=== PATIENT | male | born 1960 | race Caucasian/White ===

== ENCOUNTER 2023-12-28 14:01 | Emergency (ER) | payer MEDICARE, OTHER, SELFPAY ==
[2023-12-28 14:07] VITALS: BP 154/82
[2023-12-28 14:29] LABS: % Basophils 0.2 % (0-2); % Immature Granulocytes 0.2 % (0-0.5); % Lymphocytes 18.7 % (20.5-51.1); % Monocytes 8.8 % (1.7-9.3); % Neutrophils 71.1 % (42.2-75.2); Absolute Eosinophils 0.1 10^3/uL (0-0.7); Absolute Lymphocytes 1.5 10^3/uL (1.2-3.4); Absolute Monocytes 0.7 10^3/uL (0.1-0.6); Absolute Neutrophils 5.8 10^3/uL (1.4-6.5); Hematocrit 43.1 % (39.0-52.0); Hemoglobin 14.2 g/dL (13.0-18.0); Mean Corp Hgb Conc. 32.9 g/dL (33.0-37.0); Mean Corpuscular Hgb 29.7 pg (27.0-31.0); Mean Corpuscular Volume 90.2 fL (80.0-94.0); Mean Platelet Volume 9.1 fL (7.4-10.4); Nucleated Red Blood Cells % 0 % (-); Platelet Count 225 10^3/uL (130-400); Red Blood Cell Count 4.78 10^6/uL (4.70-6.10); Red Cell Dist. Width 12.5 % (11.5-14.5); White Blood Cell Count 8.1 10^3/uL (4.8-10.8)
--- NOTE | 2023-12-28 14:31 | ED.GENMED ---
History of Present Illness
General
Chief Complaint: Dizziness
Time Seen by Provider: 12/28/23 14:22
Travel History
Have you had any contact with someone who has COVID-19?: No
Do you have any symptoms of coronavirus? Fever > 100 degrees, chills, cough, shortness of breath, sore throat, loss of taste or smell, muscle aches, or headache?: No
History of Present Illness
History of Present Illness:
HPI: About 60 minutes ago, the patient was at a market in [place] and had a general unwell feeling including sensation of nearly passing out and a pounding heartbeat. The symptoms persisted and overall did not feel well when he got home 2
minutes later. He never had any chest pain or shortness of breath. He has no headache. He does not necessarily feel all that dizzy right now but still feels somewhat lightheaded.
EXAM:
GENERAL: Well appearing in no distress
HEENT: Moist oral mucosa
CARDIOVASCULAR: No murmurs, normal heart rate and rhythm, No chest wall tenderness, device noted
PULMONARY: No respiratory distress, breath sounds are clear and equal
ABDOMEN: Soft with no peritoneal signs, no tenderness
NEUROLOGIC: Excellent strength all extremities, no coordination deficits, normal finger-nose testing
PSYCHIATRIC: Appropriate mental status, normal insight and judgement
EXTREMITIES: Nontender, no edema, moves all extremities equally
SKIN: No rash, no lesions
ED COURSE:
2:30 PM: I initially evaluated patient
NUMBER AND COMPLEXITY OF PROBLEMS ADDRESSED AT THE ENCOUNTER
� Chronic conditions affecting care: Diabetes, diabetic neuropathy and has had problems with balance in the past, CAD, CHF on Lasix
� Acute Exacerbation and/or Progression of Chronic Illness: This is an acute problem but he has been dizzy in the past
� Differential Diagnosis includes: Hypoglycemia, dysrhythmia, electrolyte abnormality, ACS unlikely given absence of chest pain however the patient is a diabetic
AMOUNT AND/OR COMPLEXITY OF DATA TO BE REVIEWED AND ANALYZED
� I performed an independent evaluation of and my interpretation is:
EKG: AV paced at 72, no change in comparison to 05/07/2023
CT:
X-rays:
Laboratory Studies: Hemoglobin today is 14.2, troponin 0.044 and last troponin on May 07, 2023 was 0.014. He did have an elevated troponin similar to today's that cardiology felt was noncardiac.
Other:
� Review of other/old records: The patient was seen here 05/07/2023 with dizziness and at that time hemoglobin was 10.4
� Clinical information was obtained by an independent historian: Spoke to son
� Prescriptions/Medications Considered but not given:
� Further testing considered but not performed:
RISK OF COMPLICATIONS AND/OR MORBIDITY OR MORTALITY OF PATIENT MANAGEMENT
� Social determinants of health affecting care: Lives at home
� Discussion with other providers: Notified cardiology, Dr. Schuler of the patient's presentation at 3:40 PM
� Escalation of care including admission/observation vs risk of discharge considered: Initial EKG shows V paced rhythm. The patient was given some IV fluids as the hemoglobin was much higher than prior suggesting some degree of
dehydration. He feels a little bit better. Interrogation showed no dysrhythmia. Repeat EKG is unchanged from initial. Dr. Schuler said he will arrange close outpatient follow-up. The patient appears very comfortable at time of discharge.
Past History
Past History
ED Past Medical History: Asthma, Cancer (Renal cell carcinoma), CHF, GERD, HTN, Hypercholesterolemia, IDDM, Psychiatric (Anxiety, Depression, ADHD) and Other (Sleep apnea)
ED Past Surgical History: Cardiac (Pacemaker, ), Urological (Right nephrectomy) and Other (Hernia repair)
Social History
Tobacco: Former smoker
Alcohol: Occasional
Drug: None
Personal:
Living: with family
Phy Exam
Physical Exam
Physical Exam:
See HPI
Course
Orders/Labs/Results
Orders:
Orders
12/28/23 14:01
EKG [Electrocardiogram (*1)] Urgent
Reason for Study: Shortness of Breath
12/28/23 14:02
EKG- Treatment ONCE
12/28/23 14:16
Complete Blood Count/With Diff Urgent
Comprehensive Metabolic Panel Urgent
Troponin I Urgent
12/28/23 14:31
0.9% Sodium Chloride 1000 ml [Nss] 1,000 ml IV BOLUS
12/28/23 15:42
Troponin I Urgent
Abnormal Lab Results
12/28/23 12/28/23
14:16 15:42
MCHC 32.9 L g/dL
(33.0-37.0)
Absolute Monos (auto) 0.7 H 10^3/uL
(0.1-0.6)
Lymphocytes % 18.7 L %
(20.5-51.1)
BUN 29 H mg/dl
(9-20)
Glucose 118 H mg/dl
(70-99)
Troponin I 0.044 H* ng/ml 0.043 H* ng/ml
12/28/23 14:16
12/28/23 14:16
Vital Signs
Initial and Last Documented VS:
Initial Vital Signs
Temp Pulse Resp BP Pulse Ox
99.5 F 75 16 154/82 100
12/28/23 14:07 12/28/23 14:07 12/28/23 14:07 12/28/23 14:07 12/28/23 14:07
Last Documented Vital Signs
Temp Pulse Resp BP Pulse Ox
99.5 F 71 14 151/83 97
12/28/23 14:07 12/28/23 14:45 12/28/23 14:45 12/28/23 14:34 12/28/23 14:45
*Critical Care Note
Total Time (30-74mins, 75-104mins- exclusive of procedures): Not Applicable
ED Attending Note
-
Portions of this chart may have been created with voice recognition software.� Occasional wrong word or��sound alike� substitutions may have occurred due to the inherent limitations of voice recognition software.
Discharge Plan
Departure
Patient Disposition: Home (Routine Discharge)
Date of Disposition: 12/28/23
Time of Disposition: 16:26
Patient with high blood pressure during this ER visit?: Yes
Discharge Problem:
Palpitations
Instructions: Chest Pain DCA Follow Up
Prescriptions:
No Action
atorvastatin 40 MG tablet
40 mg PO HS
omeprazole 40 MG capsule,delayed release(DR/EC)
40 mg PO HS
gabapentin 300 MG capsule
300 mg PO BID
montelukast 10 MG tablet
10 mg PO HS
pioglitazone 30 MG tablet
30 mg PO HS
meclizine 25 mg Tablet
25 mg PO DAILY
losartan 50 mg tablet
50 mg PO HS
metformin 1,000 mg tablet
1,000 mg PO BID
mirtazapine 45 mg tablet
45 mg PO HS
fluoxetine 20 mg capsule
60 mg PO DAILY
budesonide-formoterol [Symbicort] 160-4.5 mcg/actuation HFA aerosol inhaler
2 puff INHALATION R DAILY
cyanocobalamin (vitamin B-12) 1,000 mcg Tablet
1,000 mcg PO DAILY 30 Days Qty: 30 0RF
furosemide 20 mg Tablet
20 mg PO DAILY 30 Days Qty: 30 0RF
carvedilol 12.5 mg Tablet
12.5 mg PO BID
insulin glargine [Lantus Solostar U-100 Insulin] 100 unit/mL (3 mL) Insulin Pen
30 unit SC HS
cholecalciferol (vitamin D3) 50 mcg (2,000 unit) Tablet
50 mcg PO DAILY
omega 7-ats-lws-fish oil [Fish Oil] 1,000 mg (120 mg-180 mg) Capsule
1 cap PO DAILY
Referrals:
TRU BROOKE MD [Family Provider] -
Activity Restrictions/Additional Instructions:
Cardiac blood work was slightly abnormal so I spoke to cardiology. Repeat cardiac blood work was unchanged from the first. This is a good sign. Your cardiac blood work has been elevated in the past as well. I recommend that you follow-up with
cardiology and they are aware that you are here in the ER today. We also interrogated the pacemaker device which shows no sign of any dysrhythmia that you may have had earlier today that would explain the symptoms.
Interventions
Interventions:
*Risk Screen - Suicide Last Done: 12/28/23 14:24
*General Assessment Last Done: 12/28/23 14:07
*Neglect/Abuse Screening Last Done: 12/28/23 14:24
*ED COVID-19 Vaccine History Last Done: 12/28/23 14:07
ED- Cardiac Assessment Last Done: 12/28/23 14:43
ED- Neurological Assessment Last Done: 12/28/23 14:43
ED Swallowing Screen Last Done: 12/28/23 14:43
[2023-12-28 14:34] VITALS: BP 151/83
[2023-12-28 14:36] LABS: ALT (SGPT) 26 U/L (0-50); AST (SGOT) 32 U/L (17-59); Alkaline Phosphatase 112 U/L (38-126); Blood Urea Nitrogen 29 mg/dl (9-20); Calcium 9.9 mg/dl (8.4-10.2); Carbon Dioxide 30 mmol/L (22-30); Chloride 104 mmol/L (98-107); Glucose 118 mg/dl (70-99); Sodium 138 mmol/L (135-145); Total Bilirubin 0.6 mg/dl (0.2-1.3); Total Protein 7.5 g/dl (6.3-8.2); eGFR > 60.00
[2023-12-28] MEDS: NSS 1000 IV (14:44)
[2023-12-28 14:47] LABS: Potassium 5.1 mmol/L (3.5-5.1)
[2023-12-28 14:53] LABS: Troponin I 0.044 ng/ml
[2023-12-28 15:00] VITALS: BP 151/79
[2023-12-28 16:00] VITALS: BP 161/85
[2023-12-28 16:18] LABS: Troponin I 0.043 ng/ml
== END 2023-12-28 16:45 | disposition home or self-care (01) ==
LOC: EMR 14:01
PROVIDERS: Student in an Organized Health Care Education/Training Program; EMERGENCY PHYSICIAN Emergency Medicine; FAMILY PHYSICIAN Internal Medicine
DX: R55 Syncope and collapse (principal); R00.2 Palpitations; I11.0 Hypertensive heart disease with heart failure; I50.9 Heart failure, unspecified; E11.40 Type 2 diabetes mellitus with diabetic neuropathy, unspecified; I25.10 Atherosclerotic heart disease of native coronary artery without angina pectoris; F32.A Depression, unspecified; F41.9 Anxiety disorder, unspecified; G47.30 Sleep apnea, unspecified; J45.909 Unspecified asthma, uncomplicated; K21.9 Gastro-esophageal reflux disease without esophagitis; Z79.4 Long term (current) use of insulin; Z95.0 Presence of cardiac pacemaker; Z87.891 Personal history of nicotine dependence; Z85.528 Personal history of other malignant neoplasm of kidney; Z90.5 Acquired absence of kidney
CPT/HCPCS: 99285; 96360; 93288; 80053; 84484; 85025; 93005

== ENCOUNTER 2024-04-14 13:54 | Emergency (ER) | payer MEDICARE, OTHER, SELFPAY ==
[2024-04-14 14:06] VITALS: BP 116/65
--- NOTE | 2024-04-14 15:00 | ED.GENMED ---
History of Present Illness
<Mine Eldridge PA-C - Last Filed: 04/14/24 18:56>
General
Chief Complaint: Weakness
Source: patient
Exam Limitations: none
Time Seen by Provider: 04/14/24 14:55
Nursing documentation reviewed up to this point in time: agreed with
Travel History
Have you had any contact with someone who has COVID-19?: No
Do you have any symptoms of coronavirus? Fever > 100 degrees, chills, cough, shortness of breath, sore throat, loss of taste or smell, muscle aches, or headache?: No
History of Present Illness
History of Present Illness:
63-year-old male with a past medical history of CHF, diabetes, history of heart block on pacemaker, renal cancer status post left nephrectomy coming into the emergency department today with lightheadedness and weakness that started this morning.
Patient states that when he woke up this morning, he started to feel a bit lightheaded when he stood up. Patient states that he felt like he was about to pass out. Patient states that his symptoms are better when he sitting or laying back but he
does still feel lightheaded. Patient does have a history of vertigo as well for which he takes meclizine. Patient did take that this morning with some relief. Patient denies chest pain, syncopal episodes, recent illnesses or recent
hospitalizations. Patient denies any swelling in his legs, shortness of breath. Patient denies any nausea or vomiting, headache.
Past History
<Mine Eldridge PA-C - Last Filed: 04/14/24 18:56>
Past History
ED Past Medical History: Asthma, Cancer (Renal cell carcinoma), CHF, GERD, HTN, Hypercholesterolemia, IDDM, Psychiatric (Anxiety, Depression, ADHD) and Other (Sleep apnea)
ED Past Surgical History: Cardiac (Pacemaker, ), Urological (Right nephrectomy) and Other (Hernia repair)
Social History
Tobacco: Former smoker
Alcohol: Occasional
Drug: None
Personal:
Living: with family
Review of Systems
<Mine Eldridge PA-C - Last Filed: 04/14/24 18:56>
Review of Systems
All Other Systems: ROS reviewed and negative except as documented in HPI and ROS
Phy Exam
<Mine Eldridge PA-C - Last Filed: 04/14/24 18:56>
Physical Exam
Physical Exam:
General: Patient is well appearing and in no acute distress; non-toxic
Skin: Warm and dry, no rashes or lesions
Head: Normocephalic, atraumatic
Eyes: Sclera non-icteric. EOMs intact. No nystagmus.
Cardiac: Regular rate and rhythm, no murmur
Peripheral Vascular: No lower extremity swelling or edema
Pulm: Normal respiratory effort, no wheezes, rales, rhonchi
Neuro: CN II-XII intact, no focal neurologic deficits. No dysmetria
Psychiatric: Appropriate mood and affect.
Course
<Mine Eldridge PA-C - Last Filed: 04/14/24 18:56>
Orders/Labs/Results
Orders:
Orders
04/14/24 15:09
Electrocardiogram (*1) Urgent
Reason for Study: Fatigue / Weakness
EKG- Treatment ONCE
Orthostatic VS- Treatment ONCE
04/14/24 15:26
pacemaker [Interrogate Pacemaker- Treatment] ONCE
04/14/24 15:41
Complete Blood Count/With Diff Urgent
04/14/24 15:46
0.9% Sodium Chloride 500 ml [Nss] 500 ml IV BOLUS
Diazepam [Valium] 2 mg PO NOW STA
04/14/24 16:34
Comprehensive Metabolic Panel Urgent
Abnormal Lab Results
04/14/24 04/14/24
15:41 16:34
RBC 4.40 L 10^6/uL
(4.70-6.10)
Absolute Monos (auto) 0.7 H 10^3/uL
(0.1-0.6)
Carbon Dioxide 33 H mmol/L
(22-30)
BUN 25 H mg/dl
(9-20)
Glucose 63 L mg/dl
(70-99)
04/14/24 15:41
04/14/24 16:34
Vital Signs
Initial and Last Documented VS:
Initial Vital Signs
Temp Pulse Resp BP Pulse Ox
98.8 F 64 20 116/65 97
04/14/24 14:06 04/14/24 14:06 04/14/24 14:06 04/14/24 14:06 04/14/24 14:06
Last Documented Vital Signs
Temp Pulse Resp BP Pulse Ox
98.8 F 64 20 116/65 97
04/14/24 14:06 04/14/24 14:06 04/14/24 14:06 04/14/24 14:06 04/14/24 14:06
<Suraj Vick, DO - Last Filed: 04/14/24 15:54>
Orders/Labs/Results
Orders:
Orders
04/14/24 15:09
Electrocardiogram (*1) Urgent
Reason for Study: Fatigue / Weakness
EKG- Treatment ONCE
Orthostatic VS- Treatment ONCE
04/14/24 15:26
pacemaker [Interrogate Pacemaker- Treatment] ONCE
04/14/24 15:41
Complete Blood Count/With Diff Urgent
04/14/24 15:46
0.9% Sodium Chloride 500 ml [Nss] 500 ml IV BOLUS
Diazepam [Valium] 2 mg PO NOW STA
04/14/24 16:34
Comprehensive Metabolic Panel Urgent
Abnormal Lab Results
04/14/24 04/14/24
15:41 16:34
RBC 4.40 L 10^6/uL
(4.70-6.10)
Absolute Monos (auto) 0.7 H 10^3/uL
(0.1-0.6)
Carbon Dioxide 33 H mmol/L
(22-30)
BUN 25 H mg/dl
(9-20)
Glucose 63 L mg/dl
(70-99)
04/14/24 15:41
04/14/24 16:34
Vital Signs
Initial and Last Documented VS:
Initial Vital Signs
Temp Pulse Resp BP Pulse Ox
98.8 F 64 20 116/65 97
04/14/24 14:06 04/14/24 14:06 04/14/24 14:06 04/14/24 14:06 04/14/24 14:06
Last Documented Vital Signs
Temp Pulse Resp BP Pulse Ox
98.8 F 64 20 116/65 97
04/14/24 14:06 04/14/24 14:06 04/14/24 14:06 04/14/24 14:06 04/14/24 14:06
<Mine Eldridge PA-C - Last Filed: 04/14/24 18:56>
*Critical Care Note
Total Time (30-74mins, 75-104mins- exclusive of procedures): Not Applicable
<Mine Eldridge PA-C - Last Filed: 04/14/24 18:56>
Patient Management
Escalation/DeEscalation of care consider admission/obs:
63-year-old male with a past medical history of CHF, diabetes, history of heart block on pacemaker, renal cancer status post left nephrectomy coming into the emergency department today with lightheadedness and weakness that started this morning.
Patient does have a history of vertigo and he did take meclizine today which did not help his symptoms mildly. On physical exam, his neurologic exam is unremarkable. Patient was given a dose of Valium here as well as IV fluids which did improve
his symptoms. I personally observed patient ambulate, patient states that he did feel better and felt stay on his feet. Here in emergency department, his orthostatic vitals were positive, with his blood pressure decreasing by 20 mmHg with
standing. This likely contributing to his symptoms. Patient CBC and CMP are unremarkable, his EKG G shows no ischemic changes, his pacemaker interrogation was negative. Considering he is well-appearing, his symptoms have largely improved he is
stable for discharge. Patient states that he will follow-up with his process steward.
<Mine Eldridge PA-C - Last Filed: 04/14/24 18:56>
Update Note
Update Note:
5:10 pm--patient does not some improvement with the valium
ED Attending Note
<Mine Eldridge PA-C - Last Filed: 04/14/24 18:56>
-
Portions of this chart may have been created with voice recognition software.� Occasional wrong word or��sound alike� substitutions may have occurred due to the inherent limitations of voice recognition software.
<Suraj Vick DO - Last Filed: 04/14/24 15:54>
ED Attending Note
Patient seen and examined by attending physician: Yes
I performed the substantive portion of visit, reviewed & personally made and approve the management plan that is documented in note by myself or MORIAH.: Yes
ED Attending Note:
I have seen and evaluated the patient with a [id number] encounter. I have spoken to the advance practicer provider and involved in the medical history, the physical exam, medical decision making.
Evaluation and management service: agree unless noted differently below.
Results interpretation: agree unless noted differently below.
Focused HPI: 63-year-old male presenting with vague dizziness and vague lightheadedness. He noticed the symptoms earlier today. He is unsure if this is related to his vertigo or possible dehydration. He took his meclizine early this morning with
some relief
Physical exam: Lying in bed comfortably. Mildly dry mucous membranes. Mild fatigable horizontal nystagmus to the right. Heart regular rate and rhythm
Medical Decision Making: Will give IV fluids and Valium and obtain basic blood work and check pacemaker
Discharge Plan
Departure
Patient Disposition: Home (Routine Discharge)
Date of Disposition: 04/14/24
Time of Disposition: 18:17
Patient with high blood pressure during this ER visit?: No
Condition: Good
Discharge Problem:
Orthostatic hypotension, Lightheadedness
Instructions: Orthostatic hypotension, BLOOD PRESSURE
Prescriptions:
New
diazepam [Valium] 2 mg tablet
2 mg PO QID PRN (Reason: muscle spasm) Qty: 8 0RF
No Action
atorvastatin 40 MG tablet
40 mg PO HS
omeprazole 40 MG capsule,delayed release(DR/EC)
40 mg PO HS
gabapentin 300 MG capsule
300 mg PO BID
montelukast 10 MG tablet
10 mg PO HS
pioglitazone 30 MG tablet
30 mg PO HS
meclizine 25 mg Tablet
25 mg PO DAILY
losartan 50 mg tablet
50 mg PO HS
metformin 1,000 mg tablet
1,000 mg PO BID
mirtazapine 45 mg tablet
45 mg PO HS
fluoxetine 20 mg capsule
60 mg PO DAILY
budesonide-formoterol [Symbicort] 160-4.5 mcg/actuation HFA aerosol inhaler
2 puff INHALATION R DAILY
cyanocobalamin (vitamin B-12) 1,000 mcg Tablet
1,000 mcg PO DAILY 30 Days Qty: 30 0RF
furosemide 20 mg Tablet
20 mg PO DAILY 30 Days Qty: 30 0RF
carvedilol 12.5 mg Tablet
12.5 mg PO BID
insulin glargine [Lantus Solostar U-100 Insulin] 100 unit/mL (3 mL) Insulin Pen
30 unit SC HS
cholecalciferol (vitamin D3) 50 mcg (2,000 unit) Tablet
50 mcg PO DAILY
omega 9-jvj-ygo-fish oil [Fish Oil] 1,000 mg (120 mg-180 mg) Capsule
1 cap PO DAILY
Referrals:
TRU BROOKE MD [Family Provider] -
Activity Restrictions/Additional Instructions:
We have sent Valium to your pharmacy. You can take one tablet every 6 hours as needed for dizziness.
Please follow up with your process steward.
Please return to the emergency department for any concerns.
Interventions
Interventions:
*Risk Screen - Suicide Last Done: 04/14/24 14:06
*General Assessment Last Done: 04/14/24 14:06
*Neglect/Abuse Screening Last Done: 04/14/24 14:06
ED- Fall Risk Assessment Last Done: 04/14/24 17:56
*ED COVID-19 Vaccine History Last Done: 04/14/24 17:56
ED- Cardiac Assessment Last Done: 04/14/24 16:17
ED- Neurological Assessment Last Done: 04/14/24 15:43
ED- Pulmonary Assessment Last Done: 04/14/24 15:43
Discharge Date and Time
Print Language: JAPANESE
[2024-04-14 15:58] LABS: % Basophils 0.2 % (0-2); % Eosinophils 1.3 % (0-6); % Immature Granulocytes 0.2 % (0-0.5); % Lymphocytes 22.6 % (20.5-51.1); % Monocytes 8.4 % (1.7-9.3); % Neutrophils 67.3 % (42.2-75.2); Absolute Eosinophils 0.1 10^3/uL (0-0.7); Absolute Lymphocytes 1.9 10^3/uL (1.2-3.4); Absolute Monocytes 0.7 10^3/uL (0.1-0.6); Absolute Neutrophils 5.7 10^3/uL (1.4-6.5); Hematocrit 39.6 % (39.0-52.0); Hemoglobin 13.4 g/dL (13.0-18.0); Mean Corp Hgb Conc. 33.8 g/dL (33.0-37.0); Mean Corpuscular Hgb 30.5 pg (27.0-31.0); Mean Platelet Volume 9.1 fL (7.4-10.4); Nucleated Red Blood Cells % 0 % (-); Platelet Count 295 10^3/uL (130-400); Red Cell Dist. Width 13.2 % (11.5-14.5); White Blood Cell Count 8.5 10^3/uL (4.8-10.8)
[2024-04-14] MEDS: VALIUM 2 MG PO (16:01)
[2024-04-14 16:16] VITALS: BP 134/61; BP 163/64; BP 164/70; PULSE 60; PULSE 63; PULSE 72
[2024-04-14] MEDS: NSS 500 IV (16:42)
[2024-04-14 17:02] LABS: ALT (SGPT) 18 U/L (0-50); AST (SGOT) 27 U/L (17-59); Albumin 3.9 g/dl (3.5-5.0); Alkaline Phosphatase 109 U/L (38-126); Blood Urea Nitrogen 25 mg/dl (9-20); Calcium 9.8 mg/dl (8.4-10.2); Carbon Dioxide 33 mmol/L (22-30); Chloride 100 mmol/L (98-107); Glucose 63 mg/dl (70-99); Potassium 4.5 mmol/L (3.5-5.1); Sodium 140 mmol/L (135-145); Total Bilirubin 0.7 mg/dl (0.2-1.3); Total Protein 7.5 g/dl (6.3-8.2); eGFR > 60.00
[2024-04-14 19:12] VITALS: BP 145/89
== END 2024-04-14 19:13 | disposition home or self-care (01) ==
LOC: EMR 13:54
PROVIDERS: Physician Assistant; EMERGENCY PHYSICIAN Student in an Organized Health Care Education/Training Program; FAMILY PHYSICIAN Internal Medicine
DX: I95.1 Orthostatic hypotension (principal); R42 Dizziness and giddiness; I50.9 Heart failure, unspecified; Z95.0 Presence of cardiac pacemaker; Z87.891 Personal history of nicotine dependence
CPT/HCPCS: 99284; 93288; 80053; 85025; 93005

== ENCOUNTER 2024-06-30 21:51 | Emergency (ER) | payer MEDICARE, OTHER, SELFPAY ==
[2024-06-30 21:51] VITALS: BMI 29.3
[2024-06-30 21:55] VITALS: BP 169/86
--- NOTE | 2024-06-30 22:08 | ED.GENMED ---
History of Present Illness
General
Chief Complaint: Musculo-Skeletal Complaint
Source: patient
Exam Limitations: none
Time Seen by Provider: 06/30/24 22:03
History of Present Illness
History of Present Illness:
Mechanical fall at home. Injured his left wrist mostly. Also hit his head. Complaining of some dizziness and mild headache. Last tetanus is unknown. No other injury or complaint.
Past History
Past History
ED Past Medical History: Asthma, Cancer (Renal cell carcinoma), CHF, GERD, HTN, Hypercholesterolemia, IDDM, Psychiatric (Anxiety, Depression, ADHD) and Other (Sleep apnea)
ED Past Surgical History: Cardiac (Pacemaker, ), Urological (Right nephrectomy) and Other (Hernia repair)
Social History
Tobacco: Former smoker
Alcohol: Occasional
Drug: None
Personal:
Living: with family
Review of Systems
Review of Systems
All Other Systems: Not applicable
Respiratory: Reports no symptoms
Cardiac: Reports no symptoms
ABD/GI: Reports no symptoms
Phy Exam
Physical Exam
Physical Exam:
TRAUMA EXAM:
VITAL SIGNS: Vital signs reviewed, cooperative
DISTRESS: No active disease
EYES: Pupils reactive, no orbital trauma
NOSE: No deformity or epistaxis
FACE AND SCALP: Abrasions to the top of the scalp. No facial trauma
NECK: Supple nontender
RESPIRATORY: No distress, breath sounds normal, no tender chest wall
CARDIAC: No murmur, pulses equal and strong
ABDOMEN: Soft nontender bowel sounds normal
SKIN: Skin intact no bleeding, color normal
EXTREMITIES: Splint to the left arm with mild deformity at the wrist. Some tenderness of the proximal forearm and proximal arm on the left. All other extremities unremarkable
NEUROLOGICAL: Alert, oriented, no motor deficits
PSYCH: Mood affect normal
Course
Orders/Labs/Results
Orders:
Orders
06/30/24 22:01
CR Wrist - Left Min 3 Views Urgent
Comment:
Reason For Exam: fall/deformity
06/30/24 22:07
Forearm, Left 2 View [CR Forearm - Left 2 View] Urgent
Comment:
Reason For Exam: trauma
Humerus, Left 2 Views [CR Humerus - Left Min 2 Views*] Urgent
Comment:
Reason For Exam: trauma
06/30/24 22:08
CT Head W/o Iv Contrast Urgent
Comment:
Reason For Exam: Trauma
Cardiac Monitoring- Treatment ONCE
Tetanus/Diphth/Acelpertussis [Adacel] 0.5 ml IM .ONCE ONE
06/30/24 23:30
Sling Left-Treatment ONCE
Splints/Slings/Crut- Treatment ONCE
Hydrocodone 5/APAP 325 [[place] 5/325] 1 tablet PO NOW STA
Vital Signs
Initial and Last Documented VS:
Initial Vital Signs
Temp Pulse Resp BP Pulse Ox
98.5 F 66 18 169/86 94
06/30/24 21:55 06/30/24 21:55 06/30/24 21:55 06/30/24 21:55 06/30/24 21:55
Last Documented Vital Signs
Temp Pulse Resp BP Pulse Ox
98.5 F 66 18 169/86 94
06/30/24 21:55 06/30/24 21:55 06/30/24 21:55 06/30/24 21:55 06/30/24 21:55
MDM/Problems Addressed
Differential Diagnosis Includes:
High suspicion for distal radius fracture. Less suspicion for more proximal left arm fracture but x-rays will be done for completeness. Because of patient's dizziness with the head injury we will get a CT of the head. Abrasions will be cleaned
with tetanus shot given
*Radiology
Radiology exam reviewed: preliminary read by ED provider (Distal radius fracture) and radiology read reviewed (Negative head CT)
*Pulse Oximetry
Patient hypoxic: no
*Critical Care Note
Total Time (30-74mins, 75-104mins- exclusive of procedures): Not Applicable
Update Note
Update Note:
Medically stable and nontoxic. Splint and orthopedic follow-up
ED Attending Note
-
Portions of this chart may have been created with voice recognition software.� Occasional wrong word or��sound alike� substitutions may have occurred due to the inherent limitations of voice recognition software.
Discharge Plan
Departure
Patient Disposition: Home (Routine Discharge)
Date of Disposition: 06/30/24
Time of Disposition: 23:53
Patient with high blood pressure during this ER visit?: Yes
Discharge Problem:
Left wrist fracture, Minor head injury
Instructions: Minor Head Injury, Adult ED, BLOOD PRESSURE, Wrist Fracture
Prescriptions:
New
hydrocodone-acetaminophen 5-300 mg tablet
1 tab PO Q6H PRN (Reason: Pain) Qty: 14 0RF
No Action
atorvastatin 40 MG tablet
40 mg PO HS
omeprazole 40 MG capsule,delayed release(DR/EC)
40 mg PO HS
gabapentin 300 MG capsule
300 mg PO BID
montelukast 10 MG tablet
10 mg PO HS
pioglitazone 30 MG tablet
30 mg PO HS
meclizine 25 mg Tablet
25 mg PO DAILY
losartan 50 mg tablet
50 mg PO HS
metformin 1,000 mg tablet
1,000 mg PO BID
mirtazapine 45 mg tablet
45 mg PO HS
fluoxetine 20 mg capsule
60 mg PO DAILY
budesonide-formoterol [Symbicort] 160-4.5 mcg/actuation HFA aerosol inhaler
2 puff INHALATION R DAILY
cyanocobalamin (vitamin B-12) 1,000 mcg Tablet
1,000 mcg PO DAILY 30 Days Qty: 30 0RF
furosemide 20 mg Tablet
20 mg PO DAILY 30 Days Qty: 30 0RF
carvedilol 12.5 mg Tablet
12.5 mg PO BID
insulin glargine [Lantus Solostar U-100 Insulin] 100 unit/mL (3 mL) Insulin Pen
30 unit SC HS
cholecalciferol (vitamin D3) 50 mcg (2,000 unit) Tablet
50 mcg PO DAILY
omega 9-chr-ahc-fish oil [Fish Oil] 1,000 mg (120 mg-180 mg) Capsule
1 cap PO DAILY
diazepam [Valium] 2 mg tablet
2 mg PO QID PRN (Reason: muscle spasm) Qty: 8 0RF
Referrals:
Misty Amador I., DO [Active] - Follow up in 2-3 days
TRU BROOKE MD [Family Provider] -
Activity Restrictions/Additional Instructions:
Call the orthopedist first thing in the morning to be seen in the next few days
Your prescription was sent to your pharmacy
Interventions
Interventions:
*Risk Screen - Suicide Last Done: 06/30/24 21:55
ED-Musculoskeletal Assessment Last Done: 06/30/24 23:27
Discharge Date and Time
Print Language: CHINESE
[2024-06-30] MEDS: NORCO 5/325 1 TABLET PO (23:34)
[2024-06-30] MEDS: ADACEL 0.5 ML IM (23:35)
[2024-07-01] MEDS: NORCO 5/325 1 TABLET PO (00:24)
[2024-07-01 00:39] VITALS: BP 160/84
== END 2024-07-01 00:41 | disposition home or self-care (01) ==
LOC: EMR 21:51
PROVIDERS: EMERGENCY PHYSICIAN Emergency Medicine; FAMILY PHYSICIAN Internal Medicine
DX: S09.90XA Unspecified injury of head, initial encounter (principal); S52.522A Torus fracture of lower end of left radius, initial encounter for closed fracture; S52.692A Other fracture of lower end of left ulna, initial encounter for closed fracture; W19.XXXA Unspecified fall, initial encounter; Z23 Encounter for immunization; R42 Dizziness and giddiness; R51.9 Headache, unspecified; J45.909 Unspecified asthma, uncomplicated; I11.0 Hypertensive heart disease with heart failure; I50.9 Heart failure, unspecified; K21.9 Gastro-esophageal reflux disease without esophagitis; E11.9 Type 2 diabetes mellitus without complications; E78.00 Pure hypercholesterolemia, unspecified; F41.8 Other specified anxiety disorders; G47.30 Sleep apnea, unspecified; Z85.528 Personal history of other malignant neoplasm of kidney; Z87.891 Personal history of nicotine dependence; Z90.5 Acquired absence of kidney; Z95.0 Presence of cardiac pacemaker
CPT/HCPCS: 99284; 90471; 70450; 73060; 73090; 73110; 90715

== ENCOUNTER → 2024-07-02 11:07 | Outpatient (REF) | payer MEDICARE, OTHER, SELFPAY ==
[2024-07-02 12:29] LABS: % Basophils 0.2 % (0-2); % Immature Granulocytes 0.2 % (0-0.5); % Lymphocytes 14.5 % (20.5-51.1); % Monocytes 8.4 % (1.7-9.3); % Neutrophils 75.7 % (42.2-75.2); Absolute Eosinophils 0.1 10^3/uL (0-0.7); Absolute Lymphocytes 1.2 10^3/uL (1.2-3.4); Absolute Monocytes 0.7 10^3/uL (0.1-0.6); Absolute Neutrophils 6.3 10^3/uL (1.4-6.5); Hematocrit 40.1 % (39.0-52.0); Hemoglobin 13.1 g/dL (13.0-18.0); Mean Corp Hgb Conc. 32.7 g/dL (33.0-37.0); Mean Corpuscular Hgb 29.1 pg (27.0-31.0); Mean Corpuscular Volume 89.1 fL (80.0-94.0); Mean Platelet Volume 9.2 fL (7.4-10.4); Nucleated Red Blood Cells % 0 % (-); Platelet Count 291 10^3/uL (130-400); Red Cell Dist. Width 12.2 % (11.5-14.5); White Blood Cell Count 8.3 10^3/uL (4.8-10.8)
[2024-07-02 14:50] LABS: Blood Urea Nitrogen 17 mg/dl (9-20); Calcium 9.6 mg/dl (8.4-10.2); Carbon Dioxide 31 mmol/L (22-30); Chloride 99 mmol/L (98-107); Glucose 101 mg/dl (70-99); Potassium 4.9 mmol/L (3.5-5.1); Sodium 137 mmol/L (135-145); eGFR > 60.00
== END ==
LOC: REG 11:07
PROVIDERS: ATTENDING PHYSICIAN Orthopaedic Surgery; FAMILY PHYSICIAN Internal Medicine
DX: Z01.818 Encounter for other preprocedural examination (principal)
CPT/HCPCS: 36415; 80048; 85025

== ENCOUNTER 2024-07-05 06:24 | Day surgery (SDC) | payer MEDICARE, OTHER, SELFPAY ==
[2024-07-05] VITALS (8 sets, daily range): BP systolic 144–161; BP diastolic 66–80; BMI 28.2
[2024-07-05] MEDS: NORMOSOL-R 1000 IV (12:38)
[2024-07-05] MEDS: TYLENOL 1000 MG PO (12:38)
[2024-07-05 12:39] LABS: Glucose - Point of Care 125 mg/dl (70-99)
[2024-07-05 14:30] LABS: Glucose - Point of Care 90 mg/dl (70-99)
[2024-07-05 15:29] LABS: Glucose - Point of Care 107 mg/dl (70-99)
--- NOTE | 2024-07-05 15:58 | PTCARENOTE ---
Report given to Mayte PARDO and patient transported to [facility] on stretcher. @ [id number]
== END 2024-07-05 16:50 | disposition home or self-care (01) ==
LOC: SDS 06:24
PROVIDERS: ATTENDING PHYSICIAN Orthopaedic Surgery
DX: S52.532A Colles' fracture of left radius, initial encounter for closed fracture (principal); W01.0XXA Fall on same level from slipping, tripping and stumbling without subsequent striking against object, initial encounter; Y92.008 Other place in unspecified non-institutional (private) residence as the place of occurrence of the external cause
CPT/HCPCS: 25607; 82962; C1713

== ENCOUNTER → 2024-10-04 15:40 | Outpatient (REF) | payer MEDICARE, OTHER, SELFPAY | LOC: RCS 15:40 | PROVIDERS: ATTENDING PHYSICIAN Internal Medicine Cardiovascular Disease; FAMILY PHYSICIAN Internal Medicine | DX: Q23.1 Congenital insufficiency of aortic valve (principal) | CPT/HCPCS: 93306 ==